=== PATIENT | male | born 1960 | race Caucasian/White ===

== ENCOUNTER 2021-08-21 09:52 | Outpatient (RCR) | payer OTHER | END 2021-08-22 | LOC: WSOH | DX: S83.91XA Sprain of unspecified site of right knee, initial encounter (principal); E78.00 Pure hypercholesterolemia, unspecified; I10 Essential (primary) hypertension; Y99.0 Civilian activity done for income or pay | CPT/HCPCS: 24091; A6549 ==

== ENCOUNTER 2021-09-02 08:39 | Outpatient (RCR) | payer OTHER | END 2021-09-22 | disposition home or self-care (01) | LOC: WSOH | DX: S83.91XD Sprain of unspecified site of right knee, subsequent encounter (principal); F39 Unspecified mood [affective] disorder; E78.00 Pure hypercholesterolemia, unspecified; I10 Essential (primary) hypertension; Y99.0 Civilian activity done for income or pay; Z96.643 Presence of artificial hip joint, bilateral ==